=== PATIENT | female | born 1985 | race Caucasian/White ===

== ENCOUNTER 2019-02-13 16:16 | Emergency (ER) | payer MEDICAID, OTHER ==
[~2019-02-13] VITALS: Ht 170.2 cm; Wt 103.0 kg
--- NOTE | 2019-02-13 16:31 | ED Upper Extremity ---
General Chief Complaint: Upper Extremity Stated Complaint: RT HAND INJ Source: patient Exam Limitations: no limitations History of Present Illness Date Seen by Provider: Feb 13, 2019 Time Seen by Provider: 16:19 Initial Comments The patient arrived by private conveyance from home with chief complaint that yesterday while cleaning out her garage a large [employer] TV that she was moving pinned her hand between a car and the TV screen causing swelling and pain. She used ice and Tylenol with minimal relief. Today her friend tried popping her finger in case it was disjointed and that caused tremendous amount of pain and swelling. She has not taken any NSAIDs. No previous history of injury to her right hand. She is right-handed. She takes metoprolol for migraine prevention, high blood pressure and history of dysrhythmia. Allergies and Home Medications Allergies Coded Allergies: latex (Verified Allergy, Unknown, 02/13/19) Patient Home Medication List Home Medication List Reviewed: Yes Review of Systems Constitutional: No chills, No diaphoresis EENTM: No hearing loss, No blurred vision Respiratory: No cough, No short of breath Cardiovascular: No chest pain, No edema Gastrointestinal: No abdominal pain, No nausea Past Atmybfa-Daaseq-Flcawm Hx Patient Social History Recent Foreign Travel: No Contact w/Someone Who Travel: No Physical Exam Vital Signs Vital Signs - First Documented 02/13/19 16:19 Temp 98.3 Pulse 114 Resp 18 B/P (MAP) 139/97 (111) Pulse Ox 99 Capillary Refill : Height, Weight, BMI Height: '" Weight: lbs. oz. kg; BMI Method: General Appearance: WD/WN, no apparent distress HEENT: PERRL/EOMI, pharynx normal Cardiovascular: normal peripheral pulses, regular rate, rhythm, other (symmetrical radial pulses 2 out of 4) Respiratory: no respiratory distress, no accessory muscle use Wrist: Yes normal inspection, Yes non-tender, Yes no evidence of injury, Yes normal ROM Hand: Right, bone tenderness (third metacarpal is tender as well as the first phalanx of the third digit right hand), ecchymosis, limited ROM, swelling (over the distal third metacarpral) Neurologic/Psychiatric: no motor/sensory deficits, alert, normal mood/affect Skin: ecchymosis (right hand dorsal) Progress/Results/Core Measures Results/Orders My Orders Orders - BENJIE TILLMAN Hand 3 View Right (02/13/19 16:24) Ibuprofen Tablet (Motrin Tablet) (02/13/19 16:30) Medications Given in ED Current Medications Medications Dose Ordered Sig/Mario Alberto Route Start Time Stop Time Status Last Admin Dose Admin Ibuprofen 800 mg ONCE ONCE PO 02/13/19 16:30 02/13/19 16:31 DC 02/13/19 16:32 800 MG Vital Signs/I&O 02/13/19 16:19 Temp 98.3 Pulse 114 Resp 18 B/P (MAP) 139/97 (111) Pulse Ox 99 Progress Progress Note : Time: 16:30 Progress Note X-ray right hand 3 views. Ibuprofen 800 mg by mouth. Suspect metacarpal fracture. Diagnostic Imaging Diagonstic Imaging: Xray Plain Films/CT/US/NM/MRI: hand (r) Comments No acute osseous abnormalities. Reviewed: Reviewed by Me Departure Impression Primary Impression: Contusion of hand Qualified Codes: S60.221A - Contusion of right hand, initial encounter Disposition: HOME, SELF-CARE Condition: Stable Departure-Patient Inst. Decision time for Depature: 16:45 Referrals: NO,LOCAL PHYSICIAN (PCP) Primary Care Physician Patient Instructions: Hand Pain (DC) Add. Discharge Instructions: For the first 3 days use an ice pack for 5 times a day as needed for swelling or pain. If you have a lot of swelling then you can elevate the hand above the level of your heart to reduce discomfort. Tylenol 1000 mg every 8 hours as needed for pain. Ibuprofen 800 mg every 8 hours as needed for pain. Rest your hand until the pain starts to subside. Santy wrap for compression and immobilization for the first week. If you're still having significant pain swelling or discomfort on movement at 7- 10 days then you should follow-up with your primary care doctor for reexamination for possible occult fracture. All discharge instructions reviewed with patient and/or family. Voiced understanding. Work/School Note: Work Release Form Date Seen in the Emergency Department: Feb 13, 2019 Return to Work: Feb 14, 2019 Restrictions: Need Release from Doctor Other Restrictions Listed Below: Wrap and light duty right hand until 02/19/19. Restrictions: No lifting more than 1# with right hand. BENJIE TILLMAN Feb 13, 2019 16:30
[2019-02-13] MEDS: IBUPROFEN 800 MG (MOTRIN) TAB PO ONE (16:32)
--- NOTE | 2019-02-13 16:46 | Diagnostic Imaging Report ---
EXAMINATION: Right hand, three views. HISTORY: Trauma. FINDINGS: No comparison available. No fracture is seen. Alignment is normal. Joint spaces are normal. IMPRESSION: 1. No fracture in the right hand. Dictated by: Dictated on workstation # [id number]
[2019-02-13 16:55] VITALS: BP 139/97
== END 2019-02-13 16:55 | disposition home or self-care (01) ==
LOC: ER FS 16:17
DX: S60.221A Contusion of right hand, initial encounter (principal); Z91.040 Latex allergy status; W23.1XXA Caught, crushed, jammed, or pinched between stationary objects, initial encounter; Y92.59 Other trade areas as the place of occurrence of the external cause
CPT/HCPCS: 73130

== ENCOUNTER 2019-10-26 20:35 | Emergency (ER) | payer MEDICAID ==
[~2019-10-26] VITALS: Ht 170 cm; Wt 130.0 kg
--- OUTSIDE RECORDS SUMMARY | 2019-10-26 20:41 | XMS REPORT | Continuity of Care Document ---
Author Organization Unknown Address Unknown Phone Unavailable Allergies Active Description Code Type Severity Reaction Onset Reported/Identified Relationship to Patient Clinical Status Yes latex [id number] Drug Allergy Unknown N/A 02/13/2019 Medications There is no data. Problems Date Dx Coded Attending Type Code Diagnosis Diagnosed By 02/16/2019 PRIMO BURTON, BENJIE Mcneil Ot M79.641 PAIN IN RIGHT HAND 02/16/2019 BENJIE TILLMAN MD Ot S60.221A CONTUSION OF RIGHT HAND, INITIAL ENCOUNT 02/16/2019 BENJIE TILLMAN MD Ot W23.1XXA CAUGHT, CRUSH, JAMMED, OR PINCHED BETW S 02/16/2019 BENJIE TILLMAN MD Ot Y92. [address] 02/16/2019 BENJIE TILLMAN MD Ot Z91.040 LATEX ALLERGY STATUS Procedures There is no data. Results There is no data. Encounters ACCT No. Visit Date/Time Discharge Status Pt. Type Provider Facility Loc./Unit Complaint [id number] 02/13/2019 16:17:00 019 16:55:00 DIS Outpatient BENJIE TILLMAN MD Via [facility] FS RT HAND INJ
[2019-10-26] MEDS ORDERED: ONDANSETRON 4 MG (ZOFRAN) ORAL DISSOLVE TAB PO STA (20:49)
[2019-10-26] MEDS ORDERED: morphine INJ 10 MG/ML 1ML (SYR OR VIAL) IM STA (20:49)
--- NOTE | 2019-10-26 20:58 | ED Upper Extremity ---
General Chief Complaint: Trauma-Non Activation Stated Complaint: FALL AT HOME Nursing Triage Note: Pt states she fell in the bathtub at home. Pt complaining of left rib pain and right thumb pain Nursing Sepsis Screen: No Definite Risk Source: patient Exam Limitations: no limitations History of Present Illness Date Seen by Provider: October 26, 2019 Time Seen by Provider: 20:40 Initial Comments Patient is a 34-year-old female who presents with right wrist/thumb pain and left-sided rib pain after falling from standing. Patient slipped on soap on her bathroom floor and fell into metal tracking striking her left chestwall before striking her right hand on the floor just prior to ED arrival. Onset: just prior to arrival Severity: moderate Pain/Injury Location: right wrist (tendernss, swelling), right hand, right thumb; bilateral other (left mid axillary chest wall pain/tenderness, no SQ emphysema or bony crepitus.) Method of Injury: direct blow, fell Allergies and Home Medications Allergies Coded Allergies: latex (Verified Allergy, Unknown, 02/13/19) Home Medications Hydrocodone/Acetaminophen 1 Each Tablet, 1 TAB PO Q4H Prescribed by: FRANCISCO J WALLACE on 10/26/192100 Patient Home Medication List Home Medication List Reviewed: Yes Review of Systems Constitutional: see HPI EENTM: see HPI Respiratory: see HPI Cardiovascular: see HPI Genitourinary: see HPI Musculoskeletal: see HPI Psychiatric/Neurological: See HPI All Other Systems Reviewed Negative Unless Noted: Yes Past Ifwsaxi-Vilmhd-Rsobjk Hx Past Med/Social Hx: Reviewed Nursing Past Med/Soc Hx Patient Social History Type Used: Cigarettes 2nd Hand Smoke Exposure: No Recent Foreign Travel: No Contact w/Someone Who Travel: No Recent Infectious Disease Expo: No Recent Hopitalizations: No Seasonal Allergies Seasonal Allergies: No Past Medical History Surgeries: Yes (EGD) Respiratory: No Cardiac: Yes Hypertension, Irregular Heartbeat Neurological: No Genitourinary: No Gastrointestinal: No Musculoskeletal: No Endocrine: No HEENT: No Cancer: No Psychosocial: No Blood Disorders: No Physical Exam Vital Signs Vital Signs - First Documented 10/26/19 20:38 Temp 36.3 Pulse 110 Resp 18 B/P (MAP) 157/105 (122) Pulse Ox 99 O2 Delivery Room Air Capillary Refill : Less Than 3 Seconds Height, Weight, BMI Height: 5'7.00" Weight: 227lbs. oz. 102.038802qb; 44.00 BMI Method:Stated General Appearance: mild distress (secondary to pain) HEENT: PERRL/EOMI, normal ENT inspection Neck: non-tender, full range of motion, supple Respiratory: lungs clear, normal breath sounds, other (Left mid axillary chest wall tendernss w/abrasion, no SQ emphysema or crepitance) Gastrointestinal: normal bowel sounds, non tender, soft, other (anterior abdominal wall abrasion) Back: normal inspection, no CVA tenderness Shoulder: normal inspection, non-tender Elbow/Forearm: normal inspection, non-tender Wrist: Yes normal inspection, Yes non-tender, Yes soft tissue tenderness (radia l wrist), Yes swelling Hand: limited ROM (right thumg) Neurologic/Tendon: normal motor functions 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, no motor/sensory deficits, alert, normal mood/affect, oriented x 3 Skin: normal color Progress/Results/Core Measures Results/Orders My Orders Orders - FRANCISCO J WALLACE DO Hand 3 View Right (10/26/19 20:49) Wrist 3 View Right (10/26/19 20:49) Ribs/Unilateral With Chest (10/26/19 20:49) Morphine Injection (Morphine Injection (10/26/19 20:49) Ondansetron Oral Dissolve Tab (Zofran (10/26/19 20:49) Thumb Spika (10/26/19 20:50) Vital Signs/I&O 10/26/19 20:38 Temp 36.3 Pulse 110 Resp 18 B/P (MAP) 157/105 (122) Pulse Ox 99 O2 Delivery Room Air Blood Pressure Mean: 122 Departure Communication (Admissions) Accidental fall from standing, no head injury or neck pain. Rib series/chest/R wrist/hand x-rays reviewed. Pain addressed and improved. Thumb splinted. Will tx supportively with PCP follow up. Return precautions reviewed. Impression Primary Impression: Contusion of left chest wall Additional Impression: Sprain of wrist, right Disposition: 01 HOME, SELF-CARE Condition: Stable Departure-Patient Inst. Decision time for Depature: 21:19 Referrals: NO,LOCAL PHYSICIAN (PCP/Family) Primary Care Physician Patient Instructions: Bruised Rib, Sprain (DC) Add. Discharge Instructions: Please wear wrist splint and take ibuprofen for pain hydrocodone as needed for additional relief. Apply ice and rest affected areas. Follow up with your PCP in 3-5 days for re-valuation. Return to the ED if new or worsening symptoms All discharge instructions reviewed with patient and/or family. Voiced understanding. Scripts Hydrocodone/Acetaminophen ([place] [facility] 7.5-325 Tablet) 1 Each Tablet 1 TAB PO Q4H for PAIN-MODERATE MDD 6 TABS for 4 Days, #15 TAB Prov: FRANCISCO J WALLACE DO 10/26/19 FRANCISCO J WALLACE DO October 26, 2019 20:57
[2019-10-26] MEDS ORDERED: HYDR-4227 PO (21:01)
--- NOTE | 2019-10-26 21:27 | Diagnostic Imaging Report ---
INDICATION: Right hand pain after fall. COMPARISON: Right wrist radiographs performed concurrently and right hand radiograph of 02/13/2019. FINDINGS: No acute fracture or traumatic malalignment. Joint spaces are well preserved. No radiopaque foreign body. IMPRESSION: Normal right hand radiographs. Dictated by: Dictated on workstation # [id number]
--- NOTE | 2019-10-26 21:27 | Diagnostic Imaging Report ---
INDICATION: Fall with left rib pain. COMPARISON: None available. TECHNIQUE: Four views of the left ribs were obtained. FINDINGS AND IMPRESSION: 1. No pneumothorax, pleural effusion or pulmonary contusion. 2. No acute displaced left-sided rib fracture. Dictated by: Dictated on workstation # [id number]
[2019-10-26 21:28] VITALS: BP 157/105
--- NOTE | 2019-10-26 21:29 | Diagnostic Imaging Report ---
INDICATION: Right wrist pain. COMPARISON: Right hand radiographs performed concurrently. TECHNIQUE: Three views of the right wrist were obtained. FINDINGS: No acute fracture or traumatic malalignment. Joint spaces are well preserved. No radiopaque foreign body or soft tissue gas. IMPRESSION: Normal radiographs of the right wrist. Dictated by: Dictated on workstation # [id number]
== END 2019-10-26 21:28 | disposition home or self-care (01) ==
LOC: EDUNIT# 20:35 → ER FS 20:38
DX: S63.501A Unspecified sprain of right wrist, initial encounter (principal); S20.212A Contusion of left front wall of thorax, initial encounter; Z91.040 Latex allergy status; W01.198A Fall on same level from slipping, tripping and stumbling with subsequent striking against other object, initial encounter; Y92.002 Bathroom of unspecified non-institutional (private) residence as the place of occurrence of the external cause
CPT/HCPCS: 71101; 73110; 73130

== ENCOUNTER 2020-01-07 23:22 | Emergency (ER) | payer MEDICAID ==
[~2020-01-07] VITALS: Ht 167 cm; Wt 104.0 kg
[~2020-01-07 23:22] MED LIST: HYDR-4227 PO
--- NOTE | 2020-01-07 23:47 | ED Upper Extremity ---
General Chief Complaint: Upper Extremity Stated Complaint: RIGHT HAND PAIN Source: patient Exam Limitations: no limitations History of Present Illness Date Seen by Provider: Jan 07, 2020 Time Seen by Provider: 23:40 Initial Comments 34-year-old female presents with right hand injury due to accidentally hitting it on a glass door when she was trying to open it. Nonintentional injury. Now complaining of pain in the back of her hand and worse with movement. No bruising or swelling. Patient states that she had a fracture in her hand years ago, does not recall what type or location. No other injury Onset: just prior to arrival Allergies and Home Medications Allergies Coded Allergies: latex (Verified Allergy, Unknown, 02/13/19) Home Medications Hydrocodone/Acetaminophen 1 Each Tablet, 1 TAB PO Q4H Prescribed by: FRANCISCO J WALLACE on 10/26/192100 Patient Home Medication List Home Medication List Reviewed: Yes Review of Systems Constitutional: no symptoms reported Musculoskeletal: No back pain, No joint pain, No neck pain; other (right hand pain without swelling) Skin: No change in color, No lesions Psychiatric/Neurological: Denies Numbness, Denies Paresthesia, Denies Weakness Past Gdvupxo-Zzqcuj-Kuumgt Hx Past Med/Social Hx: Reviewed Nursing Past Med/Soc Hx Patient Social History Type Used: Cigarettes 2nd Hand Smoke Exposure: No Recent Foreign Travel: No Contact w/Someone Who Travel: No Recent Hopitalizations: No Seasonal Allergies Seasonal Allergies: No Past Medical History Surgeries: Yes Tubal Ligation Respiratory: Yes Asthma Cardiac: Yes Hypertension, Irregular Heartbeat Neurological: No Genitourinary: No Gastrointestinal: No Musculoskeletal: No Endocrine: No HEENT: No Cancer: No Psychosocial: No Blood Disorders: No Physical Exam Vital Signs Vital Signs - First Documented 01/07/20 23:25 Temp 36.5 Pulse 102 Resp 18 B/P (MAP) 169/103 (125) Pulse Ox 93 O2 Delivery Room Air Capillary Refill : Height, Weight, BMI Height: 5'7.00" Weight: 227lbs. oz. 102.357995sk; 44.00 BMI Method:Stated General Appearance: WD/WN, no apparent distress Elbow/Forearm: normal inspection, non-tender, no evidence of injury, normal ROM Wrist: Yes normal inspection, Yes non-tender, Yes no evidence of injury, Yes normal ROM Hand: normal inspection, no evidence of injury, normal ROM, Right, bone tenderness, soft tissue tenderness Neurologic/Psychiatric: no motor/sensory deficits Skin: normal color Normal-appearing right hand without deformity. Functional range of motion, neurovascularly intact. Generalized tenderness second metacarpal and second digit. No ecchymosis, no edema Progress/Results/Core Measures Results/Orders My Orders Orders - SUSHIL COOLEY DO Hand 3 View Right (01/07/20 23:38) Vital Signs/I&O 01/07/20 23:25 Temp 36.5 Pulse 102 Resp 18 B/P (MAP) 169/103 (125) Pulse Ox 93 O2 Delivery Room Air Diagnostic Imaging Diagonstic Imaging: Xray Plain Films/CT/US/NM/MRI: hand Comments Normal hand without evidence of Fx Reviewed: Reviewed by Me Departure Impression Primary Impression: Contusion of hand Qualified Codes: S60.221A - Contusion of right hand, initial encounter Disposition: HOME, SELF-CARE Condition: Stable Departure-Patient Inst. Decision time for Depature: 23:46 Referrals: NO,LOCAL PHYSICIAN (PCP/Family) Primary Care Physician Patient Instructions: Contusion (DC) Add. Discharge Instructions: U advised rest, ice, compression with an Santy wrap and elevation of her hand for comfort. See her doctor in 2 weeks if not improving for consideration of repeat x-ray of her hand. Resume activities as tolerated otherwise avoid painful maneuvering All discharge instructions reviewed with patient and/or family. Voiced understanding. SUSHIL COOLEY DO Jan 07, 2020 23:47
--- OUTSIDE RECORDS SUMMARY | 2020-01-07 23:48 | XMS REPORT | Continuity of Care Document ---
Author Organization Unknown Address Unknown Phone Unavailable Allergies Active Description Code Type Severity Reaction Onset Reported/Identified Relationship to Patient Clinical Status Yes latex [id number] Drug Allergy Unknown N/A 02/13/2019 Medications There is no data. Problems Date Dx Coded Attending Type Code Diagnosis Diagnosed By 02/13/2019 BENJIE TILLMAN MD, Ot M79.641 PAIN IN RIGHT HAND 02/13/2019 BENJIE TILLMAN MD, Ot S60.221A CONTUSION OF RIGHT HAND, INITIAL ENCOUNT 02/13/2019 BENJIE TILLMAN MD, Ot W23.1XXA CAUGHT, CRUSH, JAMMED, OR PINCHED BETW S 02/13/2019 BENJIE TILLMAN MD Ot Y92. [address] 02/13/2019 BENJIE TILLMAN MD, Ot Z91.040 LATEX ALLERGY STATUS 02/16/2019 BENJIE TILLMAN MD, Ot M79.641 PAIN IN RIGHT HAND 02/16/2019 BENJIE TILLMAN MD, Ot S60.221A CONTUSION OF RIGHT HAND, INITIAL ENCOUNT 02/16/2019 BENJIE TILLMAN MD Ot W23.1XXA CAUGHT, CRUSH, JAMMED, OR PINCHED BETW S 02/16/2019 BENJIE TILLMAN MD Ot Y92. [address] [facility] [address] 02/16/2019 BENJIE TILLMAN MD, Ot Z91.040 LATEX ALLERGY STATUS 10/28/2019 FRANCISCO J WALLACE DO Ot R07.81 PLEURODYNIA 10/28/2019 FRANCISCO J WALLACE DO Ot S20.212A CONTUSION OF LEFT FRONT WALL OF THORAX, 10/28/2019 FRANCISCO J WALLACE DO, Ot S63.501A UNSPECIFIED SPRAIN OF RIGHT WRIST, INITI 10/28/2019 FRANCISCO J WALLACE DO Ot W01.198A FALL SAME LEV FROM SLIP/TRIP W STRIKE AG 10/28/2019 FRANCISCO J WALLACE DO, Ot Y92.002 [facility] NON-INSTITUT RESDNCE SNGL 10/28/2019 FRANCISCO J WALLACE DO Ot Z91.040 LATEX ALLERGY STATUS Procedures There is no data. Results Test Result Range GC/CHLAMYDIA (SWAB OR URINE)-RAPID - 05/07 16:15 CHLAMYDIA TRACHOMATIS RNA, TMA DETECTED NOT DETECTED NEISSERIA GONORRHOEAE RNA, TMA NOT DETECTED NOT DETECTED COMMENT NRG Encounters ACCT No. Visit Date/Time Discharge Status Pt. Type Provider Facility Loc./Unit Complaint [id number] 12/31/2019 12:00:00 12/31/2019 23:59: 59 CLS Outpatient ANEUDY CERVANTES [facility] [id number] 08/27/2018 12:00:00 Document Registration [id number] 2019 20:38:00 020 21:28:00 DIS Outpatient FRANCISCO J WALLACE DO Via [facility] ER FS FALL AT HOME [id number] 02/13/2019 16:17:00 019 16:55:00 DIS Emergency PRIMO BURTON, BENJIE Mcneil [facility] FS RT HAND INJ
[2020-01-07 23:54] VITALS: BP 169/103
--- NOTE | 2020-01-08 06:12 | Diagnostic Imaging Report ---
INDICATION: Trauma to right hand. Pain. Comparison with 10/26/2019 FINDINGS: 3 views. No fractures, dislocation or other bony abnormalities. IMPRESSION: Normal right hand. Dictated by: Dictated on workstation # [id number]
== END 2020-01-07 23:58 | disposition home or self-care (01) ==
LOC: EDUNIT# 23:22 → ER FS 23:27
DX: S60.221A Contusion of right hand, initial encounter (principal); W22.8XXA Striking against or struck by other objects, initial encounter; Y93.89 Activity, other specified; Z91.040 Latex allergy status; I10 Essential (primary) hypertension; I49.9 Cardiac arrhythmia, unspecified; J45.909 Unspecified asthma, uncomplicated; Z98.51 Tubal ligation status
CPT/HCPCS: 73130

== ENCOUNTER 2021-12-14 02:22 | Emergency (ER) | payer MEDICAID, OTHER ==
[~2021-12-14] VITALS: Ht 167 cm; Wt 140.0 kg
--- NOTE | 2021-12-14 02:40 | ED Integumentary General ---
General Chief Complaint: Bite-Animal/Human/Insect Stated Complaint: INSECT BITE History of Present Illness Date Seen by Provider: Dec 14, 2021 Time Seen by Provider: 02:35 Initial Comments 36-year-old female with complaints of a bite on the posterior left elbow. Patient states that she is feel little dizzy having a little bit of shortness of breath. There is no wheezing. No cough. Happened tonight at work. States she felt a little dizzy. She is had this happen before. She is allergic to bees so she notices not that. Allergies and Home Medications Allergies Coded Allergies: latex (Verified Allergy, Unknown, 02/13/19) Patient Home Medication List Home Medication List Reviewed: Yes Hydrocodone/Acetaminophen ([place] 7.5-325 Tablet) 1 Each Tablet, 1 TAB PO Q4H Prescribed by: FRANCISCO J WALLACE on 10/26/192100 Review of Systems Review of Systems Constitutional: see HPI Past Ybmfvij-Bgvaxn-Rdchjy Hx Patient Social History Tobacco Use?: No Seasonal Allergies Seasonal Allergies: No Past Medical History Surgeries: Yes Tubal Ligation Respiratory: Yes Asthma Cardiac: Yes Hypertension, Irregular Heartbeat Neurological: No Genitourinary: No Gastrointestinal: No Musculoskeletal: No Endocrine: No HEENT: No Cancer: No Psychosocial: No Blood Disorders: No Physical Exam Vital Signs Vital Signs - First Documented 12/14/21 02:30 Temp 36.3 Pulse 103 Resp 20 B/P (MAP) 143/101 (115) Pulse Ox 99 O2 Delivery Room Air Capillary Refill : General Appearance: WD/WN, no apparent distress HEENT: normal ENT inspection, pharynx normal Neck: non-tender, supple Cardiovascular: regular rate, rhythm, no murmur Respiratory: lungs clear, normal breath sounds Skin: other (left dorsal elbow has spot erythema. hot to touch. ) Skin Problem Location: upper extremities Skin Problem Character: macules, warm Progress/Results/Core Measures Results/Orders My Orders Orders - JESSICA MONTOYA MD Methylprednisolone Acetate Inj (Depo-Med (12/14/21 02:45) Methylprednisolone Acetate Inj (Depo-Med (12/14/21 02:44) Medications Given in ED Current Medications Medications Dose Ordered Sig/Mario Alberto Route Start Time Stop Time Status Last Admin Dose Admin Methylprednisolone Acetate 80 mg ONCE ONCE IM 12/14/21 02:45 12/14/21 02:56 DC 12/14/21 02:48 80 MG Vital Signs/I&O 12/14/21 02:30 Temp 36.3 Pulse 103 Resp 20 B/P (MAP) 143/101 (115) Pulse Ox 99 O2 Delivery Room Air Departure Impression Primary Impression: Insect bites Qualified Codes: S50.362A - Insect bite (nonvenomous) of left elbow, initial encounter; W57.XXXA - Bitten or stung by nonvenomous insect and other nonve nomous arthropods, initial encounter Disposition: HOME, SELF-CARE Condition: Stable Departure-Patient Inst. Decision time for Depature: 02:51 Referrals: NO,LOCAL PHYSICIAN (PCP/Family) Primary Care Physician Patient Instructions: Insect Bites and Stings (DC) Add. Discharge Instructions: ok to use benadryl or benadryl cream on area. follow up with pcm if no res olution of symptoms. All discharge instructions reviewed with patient and/or family. Voiced understanding. Work/School Note: Work Release Form Date Seen in the Emergency Department: Dec 14, 2021 Return to Work: Dec 15, 2021 Restrictions: No Restrictions Other Restrictions Listed Below: as long as symptoms are improved JESSICA MONTOYA MD Dec 14, 2021 02:40
[2021-12-14] MEDS ORDERED: methylPREDNISolone 80 MG/ML (DEPO MEDROL) VIAL ONE (02:44)
[2021-12-14] MEDS ORDERED: methylPREDNISolone 80 MG/ML (DEPO MEDROL) VIAL IM ONE (02:45)
[2021-12-14 03:08] VITALS: BP 143/101
== END 2021-12-14 03:08 | disposition home or self-care (01) ==
LOC: EDUNIT# 02:22 → ER FS 02:24
DX: S50.362A Insect bite (nonvenomous) of left elbow, initial encounter (principal); W57.XXXA Bitten or stung by nonvenomous insect and other nonvenomous arthropods, initial encounter
CPT/HCPCS: 99284

== ENCOUNTER → 2022-06-02 | Outpatient (CLI) | payer OTHER ==
--- NOTE | 2022-06-02 17:13 | Diagnostic Imaging Report ---
INDICATION: INJURY OF L SHOULDER COMPARISON: None. FINDINGS: 3 views of the left shoulder were obtained. There is no fracture, dislocation, or other acute bony abnormality identified. The soft tissues appear unremarkable. No radiopaque foreign body is identified. The visualized portions of the left lung are clear. IMPRESSION: No acute fractures or dislocations of the left shoulder. Dictated by: Dictated on workstation # [id number]
== END ==
LOC: RAD FS 16:37
PROVIDERS: ATTEND Nurse Practitioner Family
DX: S49.92XA Unspecified injury of left shoulder and upper arm, initial encounter (principal); X58.XXXA Exposure to other specified factors, initial encounter
CPT/HCPCS: 73030

== ENCOUNTER 2022-12-18 18:49 | Emergency (ER) | payer SELFPAY ==
--- NOTE | 2022-12-18 18:55 | ED Chest Pain ---
General Chief Complaint: Chest Pain Stated Complaint: CHEST PAIN History of Present Illness Date Seen by Provider: Dec 18, 2022 Time Seen by Provider: 18:55 Initial Comments 37 yr F with PMH of HTN not taking her BP medication for many years/ Arrhythmia and supposed to be taking Metoprolol but has not taken it for years/ Active smoker ( 8 cigarettes/ day), is here with complaints of sudden onset of left- sided chest pain which began 2 hours ago, and is radiating down her left arm and the left side of her neck, while she was at work. Patient has associated nausea. 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 Patient reports that the chest pain is coming and going, and in the ER it is a 4/10. Denies SOB, heavy lifting, fever and chills, recent illness, dizziness, cough, abdominal pain, diarrhea, diaphoresis. Allergies and Home Medications Allergies Coded Allergies: latex (Verified Allergy, Unknown, 02/13/19) Patient Home Medication List Home Medication List Reviewed: Yes Hydrocodone/Acetaminophen ([place] 7.5-325 Tablet) 1 Each Tablet, 1 TAB PO Q4H Prescribed by: FRANCISCO J WALLACE on 10/26/192100 Review of Systems Review of Systems Constitutional: no symptoms reported EENTM: No Symptoms Reported Respiratory: No Symptoms Reported Cardiovascular: See HPI, Chest Pain Gastrointestinal: No Symptoms Reported Genitourinary: No Symptoms Reported Musculoskeletal: no symptoms reported Skin: no symptoms reported Psychiatric/Neurological: No Symptoms Reported Endocrine: No Symptoms Reported Hematologic/Lymphatic: No Symptoms Reported Past Fjjoitw-Hukgni-Vhogvn Hx Immunizations Up To Date First/Initial COVID19 Vaccinat: denies Seasonal Allergies Seasonal Allergies: No Past Medical History Surgeries: Yes Tubal Ligation Respiratory: Yes Asthma Cardiac: Yes Hypertension, Irregular Heartbeat Neurological: No Genitourinary: No Gastrointestinal: No Musculoskeletal: No Endocrine: No HEENT: No Cancer: No Psychosocial: No Blood Disorders: No Physical Exam Vital Signs Vital Signs - First Documented 12/18/22 18:50 Temp 36.1 Pulse 116 Resp 20 B/P (MAP) 176/97 (123) Pulse Ox 98 O2 Delivery Room Air Capillary Refill : Height, Weight, BMI Height: 5'7.00" Weight: 227lbs. oz. 102.680910hu; 50.00 BMI Method:Stated General Appearance: No Apparent Distress, Obese HEENT: PERRL/EOMI Neck: Full Range of Motion Respiratory: Lungs Clear, Normal Breath Sounds, No Accessory Muscle Use, Other (Point tenderness which is reproducible bilaterally along the second third and fourth costochondral junctions) Cardiovascular: No Edema, Normal Peripheral Pulses, Tachycardia Gastrointestinal: Normal Bowel Sounds, Non Tender, Soft Extremity: Normal Range of Motion Neurologic/Psychiatric: Alert, Oriented x3, No Motor/Sensory Deficits Skin: Normal Color Progress/Results/Core Measures Results/Orders Lab Results Laboratory Tests Test 12/18/22 18:54 12/18/22 19:32 12/18/22 20:20 Range/Units White Blood Count 8.3 4.3-11.0 10^3/uL Red Blood Count 4.27 3.80-5.11 10^6/uL Hemoglobin 12.3 11.5-16.0 g/dL Hematocrit 37 35-52 % Mean Corpuscular Volume 87 80-99 fL Mean Corpuscular Hemoglobin 29 25-34 pg Mean Corpuscular Hemoglobin Concent 33 32-36 g/dL Red Cell Distribution Width 13.3 10.0-14.5 % Platelet Count 326 130-400 10^3/uL Mean Platelet Volume 9.7 9.0-12.2 fL Immature Granulocyte % (Auto) 0 % Neutrophils (%) (Auto) 59 42-75 % Lymphocytes (%) (Auto) 30 12-44 % Monocytes (%) (Auto) 6 0-12 % Eosinophils (%) (Auto) 4 0-10 % Basophils (%) (Auto) 1 0-10 % Neutrophils # (Auto) 4.9 1.8-7.8 10^3/uL Lymphocytes # (Auto) 2.5 1.0-4.0 10^3/uL Monocytes # (Auto) 0.5 0.0-1.0 10^3/uL Eosinophils # (Auto) 0.3 0.0-0.3 10^3/uL Basophils # (Auto) 0.1 0.0-0.1 10^3/uL Immature Granulocyte # (Auto) 0.0 0.0-0.1 10^3/uL Prothrombin Time 12.6 12.2-14.7 SEC INR Comment 0.9 0.8-1.4 Activated Partial Thromboplast Time 29 24-35 SEC D-Dimer 0.24 0.00-0.49 UG/ML Sodium Level 140 135-145 MMOL/L Potassium Level 3.9 3.6-5.0 MMOL/L Chloride Level 108 H 98-107 MMOL/L Carbon Dioxide Level 21 21-32 MMOL/L Anion Gap 11 5-14 MMOL/L Blood Urea Nitrogen 13 7-18 MG/DL Creatinine 0.72 0.60-1.30 MG/DL Estimat Glomerular Filtration Rate 112 BUN/Creatinine Ratio 18 Glucose Level 105 70-105 MG/DL Calcium Level 9.2 8.5-10.1 MG/DL Corrected Calcium 9.2 8.5-10.1 MG/DL Magnesium Level 2.1 1.6-2.4 MG/DL Total Bilirubin < 0.2 0.1-1.0 MG/DL Aspartate Amino Transf (AST/SGOT) 16 5-34 U/L Alanine Aminotransferase (ALT/SGPT) 14 0-55 U/L Alkaline Phosphatase 101 40-136 U/L Troponin I < 0.30 <0.30 NG/ML Total Protein 7.1 6.4-8.2 GM/DL Albumin 4.0 3.2-4.5 GM/DL Urine Color YELLOW Urine Clarity CLOUDY Urine pH 5.5 5-9 Urine Specific [place] >=1.030 1.016-1.022 Urine Protein NEGATIVE NEGATIVE Urine Glucose (UA) NEGATIVE NEGATIVE Urine Ketones NEGATIVE NEGATIVE Urine Nitrite NEGATIVE NEGATIVE Urine Bilirubin NEGATIVE NEGATIVE Urine Urobilinogen 0.2 < = 1.0 MG/DL Urine Leukocyte Esterase NEGATIVE NEGATIVE Urine RBC (Auto) 3+ H NEGATIVE Urine RBC 2-5 H /HPF Urine WBC 5-10 H /HPF Urine Squamous Epithelial Cells >50 H /HPF Urine Crystals NONE /LPF Urine Bacteria LARGE H /HPF Urine Casts NONE /LPF Urine Mucus LARGE H /LPF Urine Culture Indicated NO Urine Test NEGATIVE NEGATIVE Urine Opiates Screen NEGATIVE NEGATIVE Urine Oxycodone Screen NEGATIVE NEGATIVE Urine Methadone Screen NEGATIVE NEGATIVE Urine Propoxyphene Screen NEGATIVE NEGATIVE Urine Barbiturates Screen NEGATIVE NEGATIVE Ur Tricyclic Antidepressants Screen NEGATIVE NEGATIVE Urine Phencyclidine Screen NEGATIVE NEGATIVE Urine Amphetamines Screen NEGATIVE NEGATIVE Urine Methamphetamines Screen NEGATIVE NEGATIVE Urine Benzodiazepines Screen NEGATIVE NEGATIVE Urine Cocaine Screen NEGATIVE NEGATIVE Urine Cannabinoids Screen NEGATIVE NEGATIVE My Orders Orders - INDU MARTIN MD Chest 1 View Ap/Pa Only (12/18/22 18:55) Continuous Ekg Monitoring (12/18/22 18:55) Ekg Tracing (12/18/22 18:55) Cbc With Automated Diff (12/18/22 18:56) Comprehensive Metabolic Panel (12/18/22 18:56) Drug Screen Stat (Urine) (12/18/22 18:56) Hcg,Qualitative Urine (12/18/22 18:56) Magnesium (12/18/22 18:56) Ua Culture If Indicated (12/18/22 18:56) Troponin I Fs (12/18/22 18:56) Ed Iv/Invasive Line Start (12/18/22 18:59) Fibrin Degradation Products (12/18/22 18:57) Protime With Inr (12/18/22 18:57) Partial Thromboplastin Time (12/18/22 18:57) Aspirin Chewable Tablet (Baby Aspirin Ch (12/18/22 19:15) Labetalol Injection (Normodyne Injection (12/18/22 20:00) Troponin I Fs (12/18/22 19:59) Ekg Tracing (12/18/22 19:59) Aspirin Chewable Tablet (Baby Aspirin Ch (12/18/22 19:10) Medications Given in ED Current Medications Medications Dose Ordered Sig/Mario Alberto Route Start Time Stop Time Status Last Admin Dose Admin Aspirin 324 mg ONCE ONCE PO 12/18/22 19:15 12/18/22 20:36 DC 12/18/22 19:11 324 MG Labetalol HCl 20 mg ONCE ONCE IV 12/18/22 20:00 12/18/22 20:04 DC 12/18/22 20:08 20 MG Vital Signs/I&O 12/18/22 18:50 Temp 36.1 Pulse 116 Resp 20 B/P (MAP) 176/97 (123) Pulse Ox 98 O2 Delivery Room Air Progress Progress Note : Progress Note 1. ACS RULE OUT: HYPERTENSIVE URGENCY - CXR: no acute findings - EKG x2: non-ischemic x 2, first was tagycardic and 2nd EKS was NSR after Labetalol was given - Troponin x2: undetectable - CBC/ CMP: unremarkable - D-dimer: negative - UA/ UDS: negative - ASA 324mg given in ER - Labetalol 20mg iv STAT. BP and heart rate normalized after this, and chest pain resolved completely. The elevated BP is the likely cause of the chest pain. - Since patient was on metoprolol in the past, will restart metoprolol ER 25mg daily, and will give a 2-week supply. Strict instructions given to patient to f ollow-up with PCP within the next 7 days for follow-up and assessment of blood pressure and medications. -The patient was seen in the ED, and treated appropriately to presentation at a specific point in time. Patient is informed that there is a possibility that disease and illness can evolve and change in acuity rapidly or slowly after patient is discharged from the ER. Precautionary advice given to the patient for immediate return to ER if symptoms worsen or do not resolve, and to seek emergency care sooner rather than later. Pt also advised on the importance of PCP follow up and compliance with management and follow up plan with PCP and/or specialist, as this is part of the management plan. Pt verbally expressed understanding. Initial ECG Impression Date: Dec 18, 2022 Initial ECG Impression Time: 18:53 Initial ECG Rate: 114 Initial ECG Rhythm: S.Tach Initial ECG Comparisson: No Previous ECG Available EKG : EKG Time: 20:11 Rate: 87 Rhythm: Normal Sinus Intervals: Normal ECG Comparisson: Changed ECG Impression: Normal Diagnostic Imaging Diagonstic Imaging: Xray Plain Films/CT/US/NM/MRI: chest Comments [facility], [place] NAME: KOMAL BEARD Enrrique [facility] REC#: [id number] PT STATUS: REG ER : 1985 PHYSICIAN: INDU MARTIN MD ADMIT DATE: 12/18/22/ER FS Signed Date of Exam:12/18/22 CHEST 1 VIEW AP/PA ONLY EXAMINATION: Chest radiograph, portable AP view. DATE: 12/18/2022 7:24 PM INDICATION: 37-year-old female, chest pain. COMPARISON: None. FINDINGS: Heart size and mediastinal contours are unremarkable. There is no identified pneumothorax. There is no large pleural effusion. There is no identified focal airspace consolidation. IMPRESSION: No identified acute pulmonary abnormality. Dictated by: Dictated on workstation # [id number] Dict: 12/18/221924 Trans: 12/18/221926 [facility] [id number] Interpreted by: LEW ADAIR MD Electronically signed by: LEW ADAIR MD 12/18/227 Departure Impression Primary Impression: Hypertensive urgency Additional Impression: Ruled out for myocardial infarction Disposition: HOME, SELF-CARE Condition: Improved Departure-Patient Inst. Referrals: [facility] (PCP/Family) Primary Care Physician Patient Instructions: Heart Healthy Diet, High blood pressure emergencies, DASH Diet, High blood pressure in adults Add. Discharge Instructions: - Since patient was on metoprolol in the past, will restart metoprolol ER 25mg daily, and will give a 2-week supply. Strict instructions given to patient to follow-up with PCP within the next 7 days for follow-up and assessment of blood pressure and medications. All discharge instructions reviewed with patient and/or family. Voiced understanding. Scripts Metoprolol Succinate (Metoprolol Succinate) 25 Mg Tab.er.24h 25 MG PO DAILY for 14 Days, #14 TAB Prov: INDU MARTIN MD 12/18/22 Work/School Note: Work Release Form Date Seen in the Emergency Department: Dec 18, 2022 Return to Work: Dec 20, 2022 Restrictions: No Restrictions INDU MARTIN MD Dec 18, 2022 18:55
[2022-12-18 19:00] LABS: BASOPHILS # (AUTO) 0.1 10^3/uL (0.0-0.1); BASOPHILS % (AUTO) 1 % (0-10); EOSINOPHILS # (AUTO) 0.3 10^3/uL (0.0-0.3); EOSINOPHILS % (AUTO) 4 % (0-10); HEMATOCRIT 37 % (35-52); HEMOGLOBIN 12.3 g/dL (11.5-16.0); LYMPHOCYTES # (AUTO) 2.5 10^3/uL (1.0-4.0); LYMPHOCYTES % (AUTO) 30 % (12-44); MEAN CORPUSCULAR HEMOGLOBIN 29 pg (25-34); MEAN CORPUSCULAR HGB CONC 33 g/dL (32-36); MEAN CORPUSCULAR VOLUME 87 fL (80-99); MEAN PLATELET VOLUME 9.7 fL (9.0-12.2); MONOCYTES # (AUTO) 0.5 10^3/uL (0.0-1.0); MONOCYTES % (AUTO) 6 % (0-12); NEUTROPHILS # (AUTO) 4.9 10^3/uL (1.8-7.8); NEUTROPHILS % (AUTO) 59 % (42-75); PLATELET COUNT 326 10^3/uL (130-400); WHITE BLOOD COUNT 8.3 10^3/uL (4.3-11.0)
[2022-12-18] MEDS ORDERED: ASPIRIN 81 MG CHEW (CHILDREN'S ASA) ONE (19:10)
[2022-12-18 19:13] LABS: INR 0.9 (0.8-1.4); PROTHROMBIN TIME PATIENT 12.6 SEC (12.2-14.7)
[2022-12-18] MEDS ORDERED: ASPIRIN 81 MG CHEW (CHILDREN'S ASA) PO ONE (19:15)
[2022-12-18 19:21] LABS: ALANINE AMINOTRANSFERASE 14 U/L (0-55); ALKALINE PHOSPHATASE 101 U/L (40-136); BILIRUBIN,TOTAL < 0.2 MG/DL (0.1-1.0); BUN/CREATININE RATIO 18; CALCIUM 9.2 MG/DL (8.5-10.1); CARBON DIOXIDE 21 MMOL/L (21-32); CHLORIDE 108 MMOL/L (98-107); CREATININE SERUM 0.72 MG/DL (0.60-1.30); GFR ESTIMATED 112; GLUCOSE 105 MG/DL (70-105); MAGNESIUM 2.1 MG/DL (1.6-2.4); POTASSIUM 3.9 MMOL/L (3.6-5.0); SODIUM 140 MMOL/L (135-145); TOTAL PROTEIN 7.1 GM/DL (6.4-8.2)
[2022-12-18 19:22] LABS: FIBRIN DEGRADATION PRODUCTS 0.24 UG/ML (0.00-0.49)
--- NOTE | 2022-12-18 19:27 | Diagnostic Imaging Report ---
EXAMINATION: Chest radiograph, portable AP view. DATE: 12/18/2022 7:24 PM INDICATION: 37-year-old female, chest pain. COMPARISON: None. FINDINGS: Heart size and mediastinal contours are unremarkable. There is no identified pneumothorax. There is no large pleural effusion. There is no identified focal airspace consolidation. IMPRESSION: No identified acute pulmonary abnormality. Dictated by: Dictated on workstation # [id number]
[2022-12-18 19:40] LABS: BILIRUBIN,URINE NEGATIVE (NEGATIVE); COLOR,URINE YELLOW; GLUCOSE, URINE (UA) NEGATIVE (NEGATIVE); HCG,QUALITATIVE URINE NEGATIVE (NEGATIVE); KETONES,URINE NEGATIVE (NEGATIVE); LEUKOCYTE ESTERASE ,URINE NEGATIVE (NEGATIVE); NITRITE,URINE NEGATIVE (NEGATIVE); PH,URINE 5.5 (5-9); PROTEIN,URINE NEGATIVE (NEGATIVE)
[2022-12-18 19:44] LABS: BACTERIA,URINE LARGE /HPF; CLARITY,URINE CLOUDY; SQUAMOUS EPITHELIAL CELL,UR >50 /HPF
[2022-12-18 19:51] LABS: AMPHETAMINE SCREEN, URINE NEGATIVE (NEGATIVE); BARBITURATE SCREEN URINE NEGATIVE (NEGATIVE); BENZODIAZEPINES SCREEN URINE NEGATIVE (NEGATIVE); CANNABINOID SCREEN, URINE NEGATIVE (NEGATIVE); COCAINE SCREEN URINE NEGATIVE (NEGATIVE); METHADONE STAT NEGATIVE (NEGATIVE); OPIATE SCREEN URINE NEGATIVE (NEGATIVE); OXYCODONE STAT NEGATIVE (NEGATIVE); PROPOXYPHENE STAT NEGATIVE (NEGATIVE); TRICYCLIC ANTIDEPRESSANTS SCRE NEGATIVE (NEGATIVE)
[2022-12-18] MEDS ORDERED: LABETALOL HCL 20 MG/4 ML VIAL IV ONE (20:00)
[2022-12-18] MEDS ORDERED: MTP25TSR PO (20:50)
[2022-12-18 20:54] VITALS: BP 143/80
== END 2022-12-18 20:55 | disposition home or self-care (01) ==
LOC: EDUNIT# 18:49 → ER FS 18:51
DX: I16.0 Hypertensive urgency (principal); F17.210 Nicotine dependence, cigarettes, uncomplicated; Z91.040 Latex allergy status; Z28.310 Unvaccinated for COVID-19; Z79.899 Other long term (current) drug therapy
CPT/HCPCS: 36415; 71045; 80053; 80306; 81000; 83735; 84484; 84703; 85025; 85379; 85610; 85730; 93005

== ENCOUNTER 2023-01-14 14:42 | Emergency (ER) | payer SELFPAY ==
[~2023-01-14] VITALS: Ht 165 cm; Wt 139.0 kg
[~2023-01-14 14:42] MED LIST changes: +MTP25TSR PO
--- NOTE | 2023-01-14 14:53 | ED Lower Extremity ---
General Chief Complaint: Lower Extremity Stated Complaint: LT FOOT INJ | DROPPED BUMPER ON FOOT Nursing Triage Note: PT REPORTS SHE WAS LIFTING A CAR BUMPER PART AND DROPPED IT ON HER LEFT FOOT APPROXIMATELY 3 HOURS AGO. BRUISING AND SOME SWELLING TO THE FOOT AREA RIGHT BEHIND HER TOES. PT AMBULATED IN ER. Source: patient Exam Limitations: no limitations History of Present Illness Date Seen by Provider: Jan 14, 2023 Time Seen by Provider: 14:45 Initial Comments 37-year-old female with no pertinent past medical history coming in after she accidentally dropped a car bumper parts onto her left foot approximately 3 hours prior to arrival. She had a prior obligation, otherwise she would have came right to the ER. There is bruising and swelling she notes to the area and it is difficult to walk on it, but she has been walking on it. She took Tylenol earlier which only helped a little bit. She is otherwise denying any other acute complaints. LMP was 6 days ago and she has had a tubal ligation. Allergies and Home Medications Allergies Coded Allergies: latex (Verified Allergy, Unknown, 02/13/19) Patient Home Medication List Home Medication List Reviewed: Yes Hydrocodone/Acetaminophen ([place] 7.5-325 Tablet) 1 Each Tablet, 1 TAB PO Q4H Prescribed by: FRANCISCO J WALLACE on 10/26/192100 Metoprolol Succinate (Metoprolol Succinate) 25 Mg Tab.er.24h, 25 MG PO DAILY Prescribed by: INDU MARTIN MD on 12/18/222049 Review of Systems Constitutional: No fever EENTM: no symptoms reported Respiratory: no symptoms reported Cardiovascular: no symptoms reported Gastrointestinal: no symptoms reported Genitourinary: no symptoms reported Musculoskeletal: see HPI Skin: no symptoms reported Psychiatric/Neurological: See HPI Past Wcxbsii-Jyxdjb-Edclox Hx Patient Social History Tobacco Use?: No Use of E-Cig and/or Vaping dev: No Substance use?: No Alcohol Use?: No Pt feels they are or have been: No Immunizations Up To Date First/Initial COVID19 Vaccinat: denies Second COVID19 Vaccination Talha: denies Third COVID19 Vaccination Date: denies Seasonal Allergies Seasonal Allergies: No Past Medical History Surgeries: Yes Tubal Ligation Respiratory: Yes Asthma Cardiac: Yes Hypertension, Irregular Heartbeat Neurological: No Genitourinary: No Gastrointestinal: No Musculoskeletal: No Endocrine: No HEENT: No Cancer: No Psychosocial: No Blood Disorders: No Physical Exam Vital Signs Vital Signs - First Documented 01/14/23 14:45 Temp 36.7 Pulse 93 Resp 16 B/P (MAP) 174/101 (125) Pulse Ox 98 O2 Delivery Room Air Capillary Refill : Less Than 3 Seconds Height, Weight, BMI Height: 5'7.00" Weight: 227lbs. oz. 102.567260lu; 51.00 BMI Method:Stated General Appearance: WD/WN, no apparent distress HEENT: PERRL/EOMI, normal ENT inspection, pharynx normal Neck: non-tender, full range of motion, supple, normal inspection Cardiovascular: regular rate, rhythm, no edema, no murmur Respiratory: chest non-tender, lungs clear, normal breath sounds, no respiratory distress, no accessory muscle use Gastrointestinal: normal bowel sounds, non tender, soft; No distended, No guarding, No rebound Knees: bilateral knee non-tender, bilateral knee normal inspection, bilateral knee normal range of motion, bilateral knee no evidence of injury Ankles: bilateral ankle non-tender, bilateral ankle normal inspection, bilateral ankle normal range of motion, bilateral ankle no evidence of injury Feet: left foot non-tender, left foot normal inspection, left foot normal range of motion, left foot no evidence of injury; right foot bone tenderness, right foot soft tissue tenderness, right foot swelling, right foot other (Bruising along the MTP joints of the right foot with swelling and pain along the same joints that spares the fifth MTP) Neurologic/Psychiatric: no motor/sensory deficits, alert, normal mood/affect Skin: normal color, warm/dry Progress/Results/Core Measures Results/Orders My Orders Orders - NANCI OWENS MD Hydrocodone/[place] 5/325 Tablet (Hydrocod (01/14/23 15:00) Ibuprofen Tablet (Motrin Tablet) (01/14/23 15:00) Foot 3 View Left (01/14/23 14:52) Medications Given in ED Current Medications Medications Dose Ordered Sig/Mario Alberto Route Start Time Stop Time Status Last Admin Dose Admin Acetaminophen/ Hydrocodone Bitart 1 ea ONCE ONCE PO 01/14/23 15:00 01/14/23 15:01 DC 01/14/23 14:57 1 EA Ibuprofen 600 mg ONCE ONCE PO 01/14/23 15:00 01/14/23 15:01 DC 01/14/23 14:57 600 MG Vital Signs/I&O 01/14/23 14:45 Temp 36.7 Pulse 93 Resp 16 B/P (MAP) 174/101 (125) Pulse Ox 98 O2 Delivery Room Air Blood Pressure Mean: 125 Progress Progress Note : Progress Note 37-year-old female with above history coming in due to left foot pain after dropping something on it. ABCs were intact and vitals are stable on presentation. She does have bruising, swelling, bony tenderness on exam. X-ray of the left foot ordered and interpreted by me showing no fracture or dislocation. She was given initially hydrocodone and ibuprofen for pain. We gave her a boot and crutches for comfort, should follow-up with her PCP, if not seeing improvement she will follow-up with Ortho as an outpatient. I believe she is otherwise stable for discharge, she was sent home with strict return precautions. Diagnostic Imaging Diagonstic Imaging: Xray (foot left) Departure Impression Primary Impression: Contusion of foot Qualified Codes: S90.32XA - Contusion of left foot, initial encounter Disposition: HOME, SELF-CARE Condition: Stable Departure-Patient Inst. Decision time for Depature: 15:15 Referrals: [facility] [place] ([place]P/Family) Primary Care Physician Patient Instructions: Contusion (DC) Add. Discharge Instructions: Fortunately nothing is broken or dislocated, the bone is just bruised. Use the boot for comfort with walking, take it off often and range your ankle and toes so they do not get stiff. You do not need to use the boot as soon as you are a ble to walk comfortably without it. The crutches are also for comfort. Follow- up with your regular doctor if you are not seeing improvement, they may need a referral to an orthopedist if you are not getting better in the next couple of weeks. Take 6 to 800 mg of ibuprofen [id number] every 6-8 hours as needed for pain. He can add in Tylenol on top of this if you have continued pain. Icing it also may feel good for the next couple of days. NANCI OWENS MD Jan 14, 2023 14:53
[2023-01-14] MEDS ORDERED: IBUPROFEN 600 MG (MOTRIN) TAB PO ONE (15:00)
[2023-01-14] MEDS ORDERED: HYDROcodone/ACETAMINOPHEN 5 MG/325 MG TABLET PO ONE (15:00)
[2023-01-14 15:14] VITALS: BP 174/101
--- NOTE | 2023-01-14 15:16 | Diagnostic Imaging Report ---
INDICATION: Left foot crush injury with pain and swelling. COMPARISON: None. DISCUSSION: Three views of the left foot were obtained. No acute fracture, dislocation, or other osseous abnormality identified. No significant degenerative disease. Alignment is anatomic. Soft tissues are unremarkable. No erosion. No foreign body. IMPRESSION: Negative left foot. Dictated by: Dictated on workstation # [id number]
== END 2023-01-14 15:15 | disposition home or self-care (01) ==
LOC: EDUNIT# 14:42 → ER FS 14:45
DX: S90.32XA Contusion of left foot, initial encounter (principal); Z91.040 Latex allergy status; Z28.310 Unvaccinated for COVID-19; W22.8XXA Striking against or struck by other objects, initial encounter
CPT/HCPCS: 73630